=== PATIENT | female | born 1965 | race African-American/Black ===

== ENCOUNTER 2017-07-05 11:07 | Outpatient (CLI) | payer OTHER ==
--- NOTE | 2017-07-07 16:53 | MMO ---
BILATERAL SCREENING MAMMOGRAM 07/05/17 HISTORY: Screening. COMPARISON: Diagnostic mammogram from 2016. FINDINGS: Bilateral screening CC and MLO mammograms performed with computer aided detection. No mass, architectural distortion or suspicious microcalcifications. Scattered fibroglandular densiti es. IMPRESSION: BI-RADS 1: Negative Routine annual screening mammography (for women over age 40) POS: [facility]
== END 2017-07-05 11:08 | disposition home or self-care (01) ==
LOC: SCSMAMMO 11:07
PROVIDERS: ATTEND Family Medicine
DX: Z12.31 Encounter for screening mammogram for malignant neoplasm of breast (principal)
CPT/HCPCS: 77067

== ENCOUNTER 2018-01-16 09:45 | Emergency (ER) | payer OTHER ==
[2018-01-16] MEDS ORDERED: Lidocaine Viscous Sol 2% 15 ml UD Cup ONE (10:00)
[2018-01-16] MEDS ORDERED: Mag-Al 1200 mg/1200 mg/30 ML UDCUP ONE (10:00)
[2018-01-16 10:16] LABS: #Eosinphils 0.1 thou/uL (0.0-0.7); #Lymphocytes 1.4 thou/uL (1.20-3.40); #Monocytes 0.3 thou/uL (0.11-0.59); #Neutrophils 2.1 thou/uL (1.40-6.50); %Basophils 0.2 % (0.0-1.0); %Eosinophils 1.4 % (0.0-10.0); %Lymphocytes 35.9 % (21.0-51.0); %Monocytes 7.9 % (0.0-10.0); %Neutrophils 54.6 % (42.0-75.0); Mean Corpuscular HGB CONC 33.6 g/dL (32.0-36.0); Mean Corpuscular Hemoglobin 31.8 pg (27.0-31.0); Mean Corpuscular Volume 94.5 fL (78.0-98.0); Mean Platelet Volume 11.3 fL (7.4-10.4); Platelet Count 129 thou/uL (130-400); RBC Distribution Width 12.3 % (11.5-14.5); Red Blood Cell (RBC) Count 3.79 mill/uL (4.20-5.40); White Blood Cell (WBC) Count 3.9 thou/uL (4.8-10.8)
[2018-01-16 10:42] LABS: ALT (SGPT) 15 U/L (8-55); AST (SGOT) 13 U/L (5-34); Albumin 4.3 g/dL (3.5-5.0); Alkaline Phosphatase 74 U/L (40-150); Anion Gap 14 mmol/L (10-20); BUN (Urea Nitrogen) 11 mg/dL (7.0-18.7); Bilirubin, Total 0.2 mg/dL (0.2-1.2); Calc. Creatinine Clearance 0 mL/min (70-130); Carbon Dioxide 20 mmol/L (22-29); Chloride 104 mmol/L (98-107); Estimated GFR-MDRD Greater than 90; Globulin 3.2 g/dL (2.4-3.5); Glucose 319 mg/dL (70-105); Lipase 23 U/L (8-78); Protein, Total 7.5 g/dL (6.0-8.3); Sodium 134 mmol/L (136-145)
[2018-01-16 10:46] LABS: CKMB 0.6 ng/mL (0-6.6); Troponin I Less than 0.010 ng/mL (< 0.028)
--- NOTE | 2018-01-16 11:00 | RAD ---
TWO VIEWS OF THE CHEST: DATE: 01/16/18. COMPARISON: 01/13/16. HISTORY: Right-sided pain, cough. FINDINGS: There is no pneumothorax, pleural fluid, focal consolidation, or alveolar edema. Heart and mediastin al contours appear within normal limits. IMPRESSION: No acute findings. POS: [facility]
--- NOTE | 2018-01-16 11:08 | ULT ---
RIGHT UPPER QUADRANT ULTRASOUND: DATE: 01/16/18. COMPARISON: None. HISTORY: Right upper quadrant pain. TECHNIQUE: Multiplanar, green scale, sonographic imaging of the right upper quadrant provided. FINDINGS: The imaged pancreas is unremarkable. The distal body/tail is obscured by bowel gas. The hepatic parenchyma is somewhat heterogeneous and of increased echogenicity, suggesting hepatocell ular disease, such as hepatic steatosis. The veterinary bacteriologist reports a negative Madison's sign. No gallbladder wall thickening or pericholecystic fluid. No gallstones are noted. The common duct m easures 4 mm, within normal limits. The right kidney measures 12.9 cm craniocaudal dimension and dem onstrates no stone, hydronephrosis, or mass. IMPRESSION: No evidence for cholelithiasis, cholecystitis, or biliary dilatation. POS: [facility]
== END 2018-01-16 11:20 | disposition home or self-care (01) ==
LOC: ERS 09:45
DX: S29.011A Strain of muscle and tendon of front wall of thorax, initial encounter (principal); K21.9 Gastro-esophageal reflux disease without esophagitis; E11.9 Type 2 diabetes mellitus without complications; I10 Essential (primary) hypertension; Z87.891 Personal history of nicotine dependence; Z79.84 Long term (current) use of oral hypoglycemic drugs; Z79.899 Other long term (current) drug therapy; X58.XXXA Exposure to other specified factors, initial encounter
CPT/HCPCS: 36415; 71046; 76705; 80053; 82553; 83690; 84484; 85025; 86140

== ENCOUNTER 2019-06-20 18:32 | Emergency (ER) | payer BC, OTHER ==
--- NOTE | 2019-06-20 19:05 | RAD ---
Chest AP view INDICATION: Intermittent chest pain COMPARISON: None FINDINGS: Lungs:The lungs are clear Cardiac silhouette:Mild cardiomegaly. Pulmonary vasculature:Normal Pleural spaces:No pleural effusion or pneumothorax is demonstrated. Upper abdomen:No abnormality seen. Osseous structures: No acute osseous abnormality. Additional findings:None. IMPRESSION: Mild cardiomegaly without evidence of cardiac decompensation.
[2019-06-20 19:06] LABS: #Basophils 0.1 thou/uL (0.0-0.2); #Eosinphils 0.1 thou/uL (0.0-0.7); #Lymphocytes 2.3 thou/uL (1.20-3.40); #Monocytes 0.5 thou/uL (0.11-0.59); #Neutrophils 3.5 thou/uL (1.40-6.50); %Basophils 0.8 % (0.0-1.0); %Lymphocytes 35.6 % (21.0-51.0); %Monocytes 7.5 % (0.0-10.0); %Neutrophils 54.1 % (42.0-75.0); Hemoglobin 12.1 g/dL (12.0-16.0); Mean Corpuscular Hemoglobin 31.3 pg (27.0-31.0); Mean Corpuscular Volume 94.9 fL (78.0-98.0); Mean Platelet Volume 11.3 fL (7.4-10.4); Platelet Count 172 thou/uL (130-400); RBC Distribution Width 11.8 % (11.5-14.5); Red Blood Cell (RBC) Count 3.87 mill/uL (4.20-5.40); White Blood Cell (WBC) Count 6.4 thou/uL (4.8-10.8)
[2019-06-20 19:29] LABS: ALT (SGPT) 14 U/L (8-55); AST (SGOT) 14 U/L (5-34); Albumin 4.7 g/dL (3.5-5.0); Alkaline Phosphatase 81 U/L (40-110); Anion Gap 14 mmol/L (10-20); BUN (Urea Nitrogen) 18 mg/dL (9.8-20.1); Bilirubin, Total Less than 0.2 mg/dL (0.2-1.2); CK (CPK) 109 U/L (29-168); Calc. Creatinine Clearance 0 mL/min (70-130); Calcium 9.9 mg/dL (7.8-10.44); Carbon Dioxide 26 mmol/L (22-29); Chloride 102 mmol/L (98-107); Estimated GFR-MDRD Greater than 90; Globulin 3.3 g/dL (2.4-3.5); Glucose 154 mg/dL (70-105); Lipase 23 U/L (8-78); Potassium 4.5 mmol/L (3.5-5.1); Sodium 137 mmol/L (136-145)
[2019-06-20] MEDS ORDERED: Aspirin Chewable 81 MG TAB ONE (20:02)
--- NOTE | 2019-06-24 14:30 | EKG ---
Test Reason : Blood Pressure : / mmHG Vent. Rate : 068 BPM Atrial Rate : 068 BPM P-R Int : 140 ms QRS Dur : 096 ms QT Int : 412 ms P-R-T Axes : 058 -09 042 degrees QTc Int : 438 ms Normal sinus rhythm Normal ECG Confirmed by ОЛЕГ Reid, LITTLE ([id number]), newspaper editor managing MEENU STONE ([id number]) on 06/24/2019 2:29:40 PM Referred By: Confirmed By:LITTLE DENNEY M.D.
== END 2019-06-20 20:39 | disposition left against medical advice (07) ==
LOC: ERS 18:32
DX: R07.89 Other chest pain (principal); E11.9 Type 2 diabetes mellitus without complications; I10 Essential (primary) hypertension; Z87.891 Personal history of nicotine dependence; Z79.899 Other long term (current) drug therapy; Z79.84 Long term (current) use of oral hypoglycemic drugs
CPT/HCPCS: 71045; 80053; 82550; 83690; 83880; 84484; 85025; 85379; 93005

== ENCOUNTER 2019-08-08 08:35 | Emergency (ER) | payer BC | END 2019-08-08 09:04 | disposition home or self-care (01) | LOC: ERS 08:35 | DX: K04.7 Periapical abscess without sinus (principal); K02.9 Dental caries, unspecified; E11.9 Type 2 diabetes mellitus without complications; I10 Essential (primary) hypertension; Z87.891 Personal history of nicotine dependence; Z79.84 Long term (current) use of oral hypoglycemic drugs; Z79.899 Other long term (current) drug therapy | CPT/HCPCS: 99282 ==